=== PATIENT | female | born 1965 | race African-American/Black ===

== ENCOUNTER 2016-04-13 09:59 | Emergency (ER) | payer OTHER ==
[~2016-04-13] VITALS: Ht 167.6 cm; Wt 100.0 kg
--- NOTE | 2016-04-13 10:23 | PD ---
HPI Chief Complaint: depressed Time Seen by Provider: 10:16 Travel History International Travel<30 days: No Contact w/Intl Traveler<30days: No History of Present Illness HPI 51-year-old female presents with feeling depressed and having suicidal thoughts. She states she has been having these almost every day since she moved down here this summer. She states she has a plan. Her psychologist placed her under a Larson act and she presents here. She denies other concurrent complaints. [facility] Past Medical History Narrative Medical fibromyo, gerd, oa, migraines, depression, remote breast cancer Past Surgical History Hysterectomy: Yes (partial) Other Surgery: Yes (ankle) Social History Alcohol Use: Yes (social) Tobacco Use: Yes (chew) Substance Use: No Allergies-Medications (Allergen,Severity, Reaction): Coded Allergies: No Known Allergies (Unverified , 04/13/16) Review of Systems Except as stated in HPI: all other systems reviewed are Neg Physical Exam Narrative GENERAL: Well-nourished, well-developed patient. SKIN: Warm and dry. HEAD: Normocephalic and atraumatic. EYES: No injection or drainage. ENT: No nasal drainage noted. NECK: Supple, trachea midline. CARDIOVASCULAR: Regular rate and rhythm RESPIRATORY: Breath sounds equal bilaterally. No accessory muscle use. GASTROINTESTINAL: Abdomen soft, non-tender, nondistended. NEUROLOGICAL: Awake and alert. Motor and sensory grossly within normal limits. Normal speech. Data Data Last Documented VS Vital Signs Date Time Temp Pulse Resp B/P Pulse Ox O2 Delivery O2 Flow Rate FiO2 04/13/16 10:25 98.5 98 20 163/85 99 Orders Complete Blood Count With Diff (04/13/16 10:23) Basic Metabolic Panel (Bmp) (04/13/16 10:23) Psych Screen (04/13/16 10:23) Drug Screen, Random Urine (04/13/16 10:23) Alcohol (Ethanol) (04/13/16 10:23) ^ Sitter (04/13/16 11:23) Labs Laboratory Tests Test 04/13/16 10:40 White Blood Count 5.0 TH/MM3 Red Blood Count 5.25 MIL/MM3 Hemoglobin 13.8 GM/DL Hematocrit 40.1 % Mean Corpuscular Volume 76.3 FL Mean Corpuscular Hemoglobin 26.3 PG Mean Corpuscular Hemoglobin 34.4 % Concent Red Cell Distribution Width 14.2 % Platelet Count 222 TH/MM3 Mean Platelet Volume 8.1 FL Neutrophils (%) (Auto) 60.2 % Lymphocytes (%) (Auto) 27.2 % Monocytes (%) (Auto) 9.4 % Eosinophils (%) (Auto) 2.6 % Basophils (%) (Auto) 0.6 % Neutrophils # (Auto) 3.0 TH/MM3 Lymphocytes # (Auto) 1.4 TH/MM3 Monocytes # (Auto) 0.5 TH/MM3 Eosinophils # (Auto) 0.1 TH/MM3 Basophils # (Auto) 0.0 TH/MM3 CBC Comment DIFF FINAL Differential Comment Sodium Level 141 MEQ/L Potassium Level 3.6 MEQ/L Chloride Level 107 MEQ/L Carbon Dioxide Level 23.8 MEQ/L Anion Gap 10 MEQ/L Blood Urea Nitrogen 8 MG/DL Creatinine 0.84 MG/DL Estimat Glomerular Filtration 71 ML/MIN Rate Random Glucose 139 MG/DL Calcium Level 8.2 MG/DL Urine Opiates Screen NEG Urine Barbiturates Screen NEG Urine Amphetamines Screen NEG Urine Benzodiazepines Screen NEG Urine Cocaine Screen NEG Urine Cannabinoids Screen NEG Ethyl Alcohol Level LESS THAN 3 MG/DL MDM Medical Decision Making Medical Screen Exam Complete: Yes Emergency Medical Condition: Yes Medical Record Reviewed: Yes (past history confirmed) Interpretation(s) CBC & BMP Diagram 04/13/16 10:40 Differential Diagnosis Depression, anxiety, medication effect, electrolyte Narrative Course Will check blood work for medical clearance and reevaluate Labs without emergent findings; medically cleared at 11:30 for psychiatric disposition Diagnosis Primary Impression: Depression Qualified Code: F32.9 - Depression, unspecified depression type Johanna Moses MD Apr 13, 2016 10:23
[2016-04-13 10:25] VITALS: BP 163/85; PULSE 98; RESP 20; TEMP 98.5; O2SAT 99
[2016-04-13 10:56] LABS: BASOPHIL % 0.6 % (0.0-2.0); EOSINOPHIL # 0.1 TH/MM3 (0-0.4); EOSINOPHIL % 2.6 % (0.0-4.0); HEMATOCRIT 40.1 % (35.0-46.0); HEMO FLAGS DIFF FINAL; LYMPH % 27.2 % (9.0-44.0); LYMPHOCYTE # 1.4 TH/MM3 (1.0-4.8); MEAN CELL VOLUME 76.3 FL (80.0-100.0); MEAN CORPUSCULAR HEMOGLOBIN 26.3 PG (27.0-34.0); MEAN CORPUSCULAR HGB CONC 34.4 % (32.0-36.0); MONO % 9.4 % (0.0-8.0); NEUT % 60.2 % (16.0-70.0); PLATELET COUNT 222 TH/MM3 (150-450); RED BLOOD COUNT 5.25 MIL/MM3 (4.00-5.30); RED CELL DISTRIBUTION WIDTH 14.2 % (11.6-17.2)
[2016-04-13 11:07] LABS: AMPHETAMINE, URINE NEG (NEG); BARBITURATES, URINE NEG (NEG); COCAINE, URINE NEG (NEG)
[2016-04-13 11:13] LABS: ANION GAP 10 MEQ/L (5-15); BICARBONATE 23.8 MEQ/L (21.0-32.0); BLOOD UREA NITROGEN 8 MG/DL (7-18); CHLORIDE 107 MEQ/L (98-107); GLOMERULAR FILTRATION RATE 71 ML/MIN (>89); POTASSIUM 3.6 MEQ/L (3.5-5.1); SODIUM (NA) 141 MEQ/L (136-145)
[2016-04-13] MEDS ORDERED: TAMO20TA6 PO (11:53)
[2016-04-13] MEDS ORDERED: METF500T PO (12:04)
[2016-04-13] MEDS ORDERED: MELO1POW14 (12:04)
[2016-04-13] MEDS ORDERED: GENT5TAB (12:04)
[2016-04-13] MEDS ORDERED: OMEP40CA2 PO (12:04)
[2016-04-13] MEDS ORDERED: HYDR12.57 PO (12:04)
[2016-04-13] MEDS ORDERED: SUMA25TA2 PO (12:04)
[2016-04-13] MEDS ORDERED: GABA800T PO (12:04)
[2016-04-13] MEDS ORDERED: METHY10 PO (12:04)
[2016-04-13] MEDS ORDERED: ATOR40TA16 PO (12:04)
[2016-04-13] MEDS ORDERED: AMIT1TAB79 (12:04)
[2016-04-13] MEDS ORDERED: BUSP30TA PO (12:04)
[2016-04-13] MEDS ORDERED: TIMO0.5S4 LEFT EYE (12:16)
[2016-04-13 13:40] VITALS: BP 150/83; PULSE 101; RESP 18; O2SAT 97
[2016-04-13 16:02] VITALS: BP 148/78; PULSE 95; RESP 20; TEMP 97.6; O2SAT 94
[2016-04-13 18:14] VITALS: BP 141/90; PULSE 99; RESP 20; O2SAT 100
[2016-04-13 22:09] VITALS: BP 118/78; PULSE 93; RESP 18; O2SAT 97
[2016-04-14 02:07] VITALS: BP 132/71; PULSE 87; RESP 18; O2SAT 97
[2016-04-14 06:21] VITALS: BP 143/76; PULSE 88; RESP 19; O2SAT 99
[2016-04-14 10:21] VITALS: BP 130/78; PULSE 91; RESP 18; O2SAT 97
--- NOTE | 2016-04-14 10:38 | PD ---
History of Present Illness Chief Complaint: Psychiatric Symptoms Time Seen by Provider: 09:30 Travel History International Travel<30 Days: No Contact w/Intl Traveler<30days: No Known affected area: No Legal Status Legal Status: Larson Act Lars[place] Act Signed By: Luis MONTANO Psy.D, 04/13/16, 9:06am History of Present Illness: This is a 51-year-old female who presents under a Larson act for possible suicidal ideation, initiated at the [facility]. The patient denies being suicidal but does admit to approximately a six-month history of depression, since moving to this area. She is in a relationship with a woman who has brought her oldest child down to live with them. The patient does not find this comfortable but has yet to discuss the issue with her partner. The patient admits to symptoms of depression, anhedonia, irritability, decreased energy, etc. She also admits to a history of suicidal ideation. However she is currently denying any suicidal plan or intent. In fact, she is randell for safety. She would like to receive counseling at the [facility] and promises to go there after her release from this emergency department. This physician is therefore lifting her Larson act. PFSH Past Medical History Medical History: Denies Significant Hx Tetanus Vaccination: > 5 Years ?: Not Past Surgical History Hysterectomy: Yes (partial) Other Surgery: Yes (ankle) Psychiatric History Psychiatric History Hx Psychiatric Treatment: Started seeing psychiatrist in 2012, in [place] History of Inpatient Treatment: No Guns or firearms in home: No Social History Hx Alcohol Use: Yes (social) Hx Tobacco Use: Yes (chew) Hx Substance Use: No (Denies) Hx of Substance Use Treatment: No Allergies-Medications (Allergen,Severity, Reaction): Coded Allergies: No Known Allergies (Unverified , 04/13/16) Reported Meds & Prescriptions Reported Meds & Active Scripts Active Reported Timoptic-Xe Opth Gel (Timolol Opth Gel) 0.5 % Gel 1 Drop LEFT EYE DAILY Meloxicam (Meloxicam (Bulk)) 1 Pow Pow Qc Gentle Laxative (Bisacodyl) 5 Mg Tab Omeprazole 40 Mg Cap 50 Mg PO DAILY Gabapentin 800 Mg Tab 800 Mg PO TID Ritalin IR (Methylphenidate HCl) 10 Mg Tab 10 Mg PO BIDAC Elavil (Amitriptyline HCl) 25 Mg Tab 5 Mg HS Metformin (Metformin HCl) 500 Mg Tab 100 Mg PO BIDPC With meals Sumatriptan (Sumatriptan Succinate) 25 Mg Tab 20 Mg PO ONCE PRN If a satisfactory response has not been obtained at 2 hours, a second dose may be administered Hydrochlorothiazide 12.5 Mg Cap 5 Mg PO DAILY Buspirone (Buspirone HCl) 30 Mg Tab 75 Mg PO BID Atorvastatin (Atorvastatin Calcium) 40 Mg Tab 40 Mg PO HS Tamoxifen (Tamoxifen Citrate) 20 Mg Tab 40 Mg PO BID Review of Systems Except as stated in HPI: all other systems reviewed are Neg Exam Alert: Yes [place]: Person, Place, Date, Situation Mood: Calm Affect: Euthymic Speech: Clear Eye Contact: Normal Memory Intact: Immediate, Recent, Remote Hallucinations: Other Delusions: No Suicidal: Ideation Insight/Judgement Insight and judgment are mildly impaired but adequate. MDM Medical Decision Making Medical Record Reviewed: Yes Assessment/Plan Patient's Larson act Will be lifted so that she can return to the [facility] for outpatient treatment. Orders ^ Sitter (04/13/16 11:23) Diet Regular Basic (04/13/16 Dinner) Diet Regular Basic (04/14/16 Breakfast) Diet Regular Basic (04/14/16 Lunch) Results Vital Signs Date Time Temp Pulse Resp B/P Pulse Ox O2 Delivery O2 Flow Rate FiO2 04/14/16 10:21 91 18 130/78 97 Room Air 04/14/16 06:21 88 19 143/76 99 Room Air 04/14/16 02:07 87 18 132/71 97 Room Air 04/13/16 22:09 93 18 118/78 97 Room Air 04/13/16 18:14 99 20 141/90 100 Room Air 04/13/16 16:02 97.6 95 20 148/78 94 Room Air 04/13/16 13:40 101 18 150/83 97 Laboratory Tests Test 04/13/16 10:40 White Blood Count 5.0 Red Blood Count 5.25 Hemoglobin 13.8 Hematocrit 40.1 Mean Corpuscular Volume 76.3 Mean Corpuscular Hemoglobin 26.3 Mean Corpuscular Hemoglobin 34.4 Concent Red Cell Distribution Width 14.2 Platelet Count 222 Mean Platelet Volume 8.1 Neutrophils (%) (Auto) 60.2 Lymphocytes (%) (Auto) 27.2 Monocytes (%) (Auto) 9.4 Eosinophils (%) (Auto) 2.6 Basophils (%) (Auto) 0.6 Neutrophils # (Auto) 3.0 Lymphocytes # (Auto) 1.4 Monocytes # (Auto) 0.5 Eosinophils # (Auto) 0.1 Basophils # (Auto) 0.0 CBC Comment DIFF FINAL Differential Comment Sodium Level 141 Potassium Level 3.6 Chloride Level 107 Carbon Dioxide Level 23.8 Anion Gap 10 Blood Urea Nitrogen 8 Creatinine 0.84 Estimat Glomerular Filtration 71 Rate Random Glucose 139 Calcium Level 8.2 Urine Opiates Screen NEG Urine Barbiturates Screen NEG Urine Amphetamines Screen NEG Urine Benzodiazepines Screen NEG Urine Cocaine Screen NEG Urine Cannabinoids Screen NEG Ethyl Alcohol Level LESS THAN 3 Diagnosis Primary Impression: Depression Additional Impression: Adjustment disorder with mixed disturbance of emotions and conduct Problem Qualifiers Primary Impression: Depression Qualified Code: F32.9 - Depression, unspecified depression type Christos Swanson MD Apr 14, 2016 10:37
[2016-04-14 12:06] VITALS: BP 130/78; PULSE 91; RESP 18; O2SAT 97
== END 2016-04-14 13:22 | disposition home or self-care (01) ==
LOC: NEPC 09:59 → NEPJ 04-14 13:22
DX: F32.9 Major depressive disorder, single episode, unspecified (principal); Z72.0 Tobacco use; R45.851 Suicidal ideations
CPT/HCPCS: 80048; 80307; 80320; 85025; 99285